=== PATIENT | male | born 1955 | race Caucasian/White ===

== ENCOUNTER 2019-01-11 18:36 | Emergency (ER) | payer BC ==
[~2019-01-11] VITALS: Ht 175.3 cm; Wt 77.1 kg
[2019-01-11 18:55] VITALS: Ht 175.3 cm; Wt 77.1 kg
[2019-01-11 20:17] LABS: BASOPHIL % 0.2 % (0-2); PLATELET COUNT 132 x10^3mcL (130-400); RED CELL DISTRIBUTION WIDTH 13.6 % (11.5-14.5)
[2019-01-11 20:30] LABS: CALCIUM 9.1 mg/dL (8.5-10.1); CREATININE SERUM 1.5 mg/dL (0.7-1.3); POTASSIUM SERUM 3.8 mmol/L (3.5-5.1)
[2019-01-11 20:47] LABS: ALBUMIN 3.9 g/dL (3.4-5.0); BILIRUBIN TOTAL 0.43 mg/dL (0.20-1.00); TOTAL PROTEIN, SERUM 7.6 g/dL (6.4-8.2)
[2019-01-11 22:36] VITALS: BP 127/73
== END 2019-01-11 22:36 | disposition home or self-care (01) ==
LOC: ED 18:36
DX: K52.9 Noninfective gastroenteritis and colitis, unspecified (principal); Z90.89 Acquired absence of other organs; Z98.890 Other specified postprocedural states; Z88.6 Allergy status to analgesic agent; Z88.8 Allergy status to other drugs, medicaments and biological substances
CPT/HCPCS: J1885; J7030

== ENCOUNTER 2019-01-14 19:36 | Emergency (ER) | payer BC ==
[~2019-01-14] VITALS: Ht 175.3 cm; Wt 78.0 kg
[2019-01-14 20:06] VITALS: Ht 175.3 cm; Wt 78.0 kg
[2019-01-14 20:57] LABS: BASOPHIL % 0.3 % (0-2); RED CELL DISTRIBUTION WIDTH 13.8 % (11.5-14.5)
[2019-01-14 21:05] LABS: CALCIUM 8.5 mg/dL (8.5-10.1); CARBON DIOXIDE 26.1 mmol/L (21-32); CHLORIDE SERUM 105 mmol/L (98-107); GFR1 > 60 mL/min; GLUCOSE SERUM 108 mg/dL (74-106); POTASSIUM SERUM 3.8 mmol/L (3.5-5.1); SODIUM SERUM 140 mmol/L (136-145)
[2019-01-14 21:13] LABS: ALBUMIN 3.1 g/dL (3.4-5.0); ALKALINE PHOSPHATASE 51 U/L (46-116); ALT/SGPT 50 U/L (16-63); AST/SGOT 67 U/L (15-37); BILIRUBIN TOTAL 0.5 mg/dL (0.20-1.00); TOTAL PROTEIN, SERUM 6.3 g/dL (6.4-8.2)
[2019-01-14 21:16] LABS: PLATELET COUNT 65 x10^3mcL (130-400)
[2019-01-15 00:44] VITALS: BP 110/72
== END 2019-01-15 00:44 | disposition home or self-care (01) ==
LOC: ED 19:36
DX: K57.30 Diverticulosis of large intestine without perforation or abscess without bleeding (principal)
CPT/HCPCS: J2270; J2405; J2765; J3010; J7030

== ENCOUNTER 2019-04-25 16:55 | Emergency (ER) | payer BC ==
[~2019-04-25] VITALS: Ht 175.3 cm; Wt 72.1 kg
[2019-04-25 17:06] VITALS: Ht 175.3 cm; Wt 72.1 kg
[2019-04-25 19:38] LABS: BASOPHIL % 0.4 % (0-2); PLATELET COUNT 265 x10^3mcL (130-400); RED CELL DISTRIBUTION WIDTH 13.6 % (11.5-14.5)
[2019-04-25 19:50] LABS: CALCIUM 8.5 mg/dL (8.5-10.1); CARBON DIOXIDE 32.1 mmol/L (21-32); CHLORIDE SERUM 107 mmol/L (98-107); CREATININE SERUM 0.9 mg/dL (0.7-1.3); GFR1 > 60 mL/min; GLUCOSE SERUM 109 mg/dL (74-106); POTASSIUM SERUM 4.3 mmol/L (3.5-5.1); SODIUM SERUM 142 mmol/L (136-145)
[2019-04-25 19:55] LABS: ALBUMIN 2.9 g/dL (3.4-5.0); ALKALINE PHOSPHATASE 85 U/L (46-116); ALT/SGPT 16 U/L (16-63); AMYLASE 47 U/L (25-115); AST/SGOT 19 U/L (15-37); BILIRUBIN TOTAL 0.57 mg/dL (0.20-1.00); LIPASE 165 IU/L (73-393); TOTAL PROTEIN, SERUM 7.5 g/dL (6.4-8.2)
[2019-04-25 20:03] LABS: microscopic required? YES; urine erythrocyte NEGATIVE (NEGATIVE)
[2019-04-25 20:16] LABS: AMPHETAMINE QUAL UR NONE DETECTED (See below)
[2019-04-25 22:20] VITALS: BP 115/89
== END 2019-04-25 22:20 | disposition home or self-care (01) ==
LOC: ED 16:55
PROVIDERS: Emergency Medicine
DX: R10.9 Unspecified abdominal pain (principal); R50.9 Fever, unspecified; M25.561 Pain in right knee; M25.562 Pain in left knee; R53.83 Other fatigue; R05 Cough; K21.9 Gastro-esophageal reflux disease without esophagitis; E78.00 Pure hypercholesterolemia, unspecified; Z98.890 Other specified postprocedural states; Z90.89 Acquired absence of other organs; Z88.8 Allergy status to other drugs, medicaments and biological substances
CPT/HCPCS: J1885; J7030; Q0092; Q9967

== ENCOUNTER 2020-01-29 17:35 | Emergency (ER) | payer BC, OTHER, SELFPAY ==
[~2020-01-29] VITALS: Ht 175.3 cm; Wt 65.8 kg
[2020-01-29 18:59] VITALS: Ht 175.3 cm; Wt 65.8 kg
[2020-01-29 19:27] LABS: BASOPHIL % 0.3 % (0-2); PLATELET COUNT 128 x10^3mcL (130-400); RED CELL DISTRIBUTION WIDTH 13.7 % (11.5-14.5)
[2020-01-29 19:34] LABS: CALCIUM 8.4 mg/dL (8.5-10.1); CARBON DIOXIDE 27.8 mmol/L (21-32); CHLORIDE SERUM 105 mmol/L (98-107); CREATININE SERUM 1.2 mg/dL (0.7-1.3); GFR1 > 60 mL/min; GLUCOSE SERUM 105 mg/dL (74-106); POTASSIUM SERUM 3.9 mmol/L (3.5-5.1); SODIUM SERUM 141 mmol/L (136-145)
[2020-01-29 19:39] LABS: ALKALINE PHOSPHATASE 51 U/L (46-116); ALT/SGPT 13 U/L (16-63); AST/SGOT 32 U/L (15-37); BILIRUBIN TOTAL 0.69 mg/dL (0.20-1.00); C REACTIVE PROTEIN 8.6 mg/dL (<=0.9); LACTIC DEHYDROGENASE (LDH) 312 U/L (100-190); TOTAL PROTEIN, SERUM 7.3 g/dL (6.4-8.2)
[2020-01-29 19:40] LABS: ALBUMIN 3.1 g/dL (3.4-5.0)
[2020-01-29 23:15] VITALS: BP 132/79
== END 2020-01-29 23:15 | disposition home or self-care (01) ==
LOC: ED 17:35
PROVIDERS: Emergency Medicine
DX: U07.1 COVID-19 (principal); K21.0 Gastro-esophageal reflux disease with esophagitis; E78.00 Pure hypercholesterolemia, unspecified; Z98.890 Other specified postprocedural states; Z90.49 Acquired absence of other specified parts of digestive tract
CPT/HCPCS: 83880; 85378; 87804; J1885; J2270; J2405; J7030; Q0092; U0003-CS